=== PATIENT | male | born 1940 | race Asian ===

== ENCOUNTER 2016-04-01 17:30 | Inpatient (IN) | payer MEDICARE ==
[~2016-04-01] VITALS: Ht 170.2 cm; Wt 80.9 kg
[2016-04-01 17:35] VITALS: BP 188/83; PULSE 69; RESP 50; O2SAT 86
--- NOTE | 2016-04-01 17:56 | ED.REPORT ---
HPI-Dyspnea / Wheezing Date of Service Apr 01, 2016 ED Provider: Ethan Eastman MD Pt is a 75 year old male with a hx of CHF, HTN, CVA, and DM presenting to the ED complaining of dyspnea onset yesterday. He denies fever, diaphoresis, nausea , vomiting. He reports dyspnea on exertion, reporting that it took him more than half an hour to recover from going up the stairs. The pt was unable to sleep well last night. The pt's son in law reports that today, the pt seemed fine at 1300, then at 1700 the pt was wheezing heavily. Recent hospitalization in [place], [facility] in [place] [facility]. The family denies previous similar symptoms. The pt is visiting from [place]. Nursing Notes Stated Complaint: SHORTNESS OF BREATH Chief Complaint: Respiratory Distress Nursing Notes Reviewed: Yes (Nubli not reconciled) Allergies: Coded Allergies: No Known Allergies (Unverified , 04/01/16) Scheduled Allopurinol (Allopurinol) 100 Mg Tablet 100 MG PO DAILY Atorvastatin (Lipitor) 80 Mg Tablet 80 MG PO DAILY Dabigatran Etexilate Mesylate (Pradaxa) 75 Mg Capsule 75 MG PO BID Furosemide (Furosemide) 20 Mg Tab 10 MG PO DAILY Insulin Aspart (NovoLOG 70/30 U100 Insulin Vial) 100 Unit/Ml Vial 16 UNIT SUBQ BID Losartan Potassium (Cozaar) 100 Mg Tablet 50 MG PO DAILY Metoprolol Succinate ER (Metoprolol Succinate ER) 100 Mg Tab.er.24h 100 MG PO BID Potassium Chloride (Potassium Chloride) 10 Meq Capsule.er 5 MEQ PO DAILY TAKE WITH FOOD General Time Seen by MD: 17:50 Chief Complaint Shortness of breath Hx Obtained From: Patient, Son, Daughter Arrived By: Walk-in Sudden in Onset?: No Onset Occurred: Yesterday Symptom Duration: Since onset Severity: Current: No pain currently Severity: Maximum: No pain Recent Healthcare: No recent doctor visit, Recent hospitalization Similar Sx Previous: No Risk Factors CAD Risk Stratification Diabetes mellitus Risk factors reviewed Past Medical History Past Medical History Notes: Admitted March 13-2016 for congestive heart failure and possible pneumonia 8uj at [facility] in the [place], [place] Echo at outside hospital 02/08/2016 showed moderately decreased LV function with EF 40-45% Admitted February 11 through 02/15/2016 in [place] for a stroke Past Medical History History of combined systolic and diastolic congestive heart failure Paroxysmal atrial fibrillation and flutter, on per ANITA Type II diabetes Chronic renal insufficiency Hypertension History of CVA, history of dysphagia History of tachybradycardia syndrome Gout Coronary artery disease Past Surgical History RCA percutaneous intervention for coronary disease Reports: CABG Smoking History Unknown if Ever Smoker Social History Lives in [place] Ambulatory Status Independent Review of Systems Constitutional: Denies: Fever Respiratory: Reports: Dyspnea on exertion, Shortness of breath, Wheezing Skin: Denies Diaphoresis Complete sys rev & neg: except as marked. GI: Denies: Nausea, Vomiting Physical Exam Initial Vital Signs Vital Signs (First) Date Time Temp Pulse Resp B/P Pulse Ox O2 Delivery O2 Flow Rate FiO2 04/01/16 17:35 37.0 69 50 188/83 86 Room Air 04/01/16 18:47 2.5 Initial VS: Reviewed, Vital signs abnormal (hypoxic) Head / Eyes: Atraumatic, Normocephalic, PERRL ENT: Mucous membranes moist, Conjunctiva normal, No scleral icterus Abdomen / GI: Soft, Non-tender, No guarding, No rebound Skin: Warm, Dry, No cyanosis Neurologic: Alert, Oriented, Nonfocal Psychiatric: Mood/affect normal, Behavior normal, Normal thought content General/Constitutional: Awake, Alert Very hard of hearing. Respiratory / Chest: No chest tenderness Wheezing / Retractions: Positive: Wheeze insp/exp diffuse Rales / Rhonchi: Positive: Rales diffuse Visibly tachypnic and mildly dyspnic. Diminished lung sounds. Cardiovascular: No murmurs Lower Extremity / Pelvis / MS: No deformity, Neurologic intact, Vascular intact Trace edema symmetrically, no signs of DVT Interpretation & Diagnostics Lab Results Interpretation Result Diagram: 04/01/16 1752 04/01/16 1752 Test 04/01/16 17:52 White Blood Count 17.1th/mm3 (3.8-10.1) Red Blood Count 4.98mil/mm3 (4.40-5.80) Hemoglobin 14.7g/dL (13.8-17.2) Hematocrit 44.2% (41.0-50.0) Mean Corpuscular Volume 88.8fL (81-100) Mean Corpuscular Hemoglobin 29.5pg (27.0-35.0) Mean Corpuscular Hemoglobin Concent 33.3% (32.0-37.0) Red Cell Distribution Width 16.6% (12.3-15.4) Platelet Count 242bil/L (150-400) Neutrophils (%) (Auto) 77.1% (40-74) Lymphocytes (%) (Auto) 11.4% (14-46) Monocytes (%) (Auto) 9.1% (4-12) Eosinophils (%) (Auto) 1.4% (0-5) Basophils (%) (Auto) 0.2% (0-3) Prothrombin Time 11.4sec (8.1-12.5) Prothromb Time International Ratio 1.06ratio Activated Partial Thromboplast Time 36.9sec (22.8-33.0) D-Dimer < 0.5mg/L (<0.50) Sodium Level 142mEq/L (134-144) Potassium Level 4.9mEq/L (3.5-5.2) Chloride Level 104mEq/L (97-108) Carbon Dioxide Level 21mmol/L (18-29) Blood Urea Nitrogen 26mg/dL (8-27) Creatinine 1.55mg/dL (0.76-1.27) Estimat Glomerular Filtration Rate 47mL/min (>59) Glucose Level 200mg/dL (60-99) Lactic Acid Level 2.4mmol/L (0.4-2.0) Calcium Level 8.5mg/dL (8.5-10.1) Magnesium Level 1.8mg/dL (1.6-2.6) Total Bilirubin 0.7mg/dL (0.0-1.2) Aspartate Amino Transf (AST/SGOT) 20U/L (0-50) Alanine Aminotransferase (ALT/SGPT) 19U/L (0-44) Alkaline Phosphatase 150U/L (25-160) Troponin T < 0.010ug/L (0.0-0.011) Pro-B-Type Natriuretic Peptide 5169pg/mL (0-486) Total Protein 6.6g/dL (6.4-8.4) Albumin 3.8g/dL (3.4-5.0) Hold Bass Top Tube Received (Received) Lab Results Interpretation: CBC possible leukocytosis CMP renal insufficiency is improved from recent labs the creatinine at 2.79, mild Lactic acid marginally elevated Blood culture 2 pending Troponin negative BNP elevated ECG Interpretation ECG Interpretation: EKG demonstrates atrial flutter with a ventricular control, rate of 80, no clear acute ischemic changes. NO prior EKG available for comparison Time: 17:56 Interpreted by: ED physician X-Ray Chest Interpretation Chest Xray Interpretation: IMPRESSION: Right basilar radiopacities in pleural effusions suspicious for aspiration or infection. Short interval followup is recommended to ensure resolution of this finding and exclude underlying pulmonary pathology. Dictated by: Leslee Austin M.D. on 04/01/2016 at 19:05 View: Portable, 1 view Interpretation / Wet Read by: Interpret - Radiologist Re-Eval/Medical Decision Med Decision/Clinical Course This is a 75-year-old male who is visiting from [place] and arrived on Thursday. He developed some shortness of breath yesterday, that worsened today associated with dyspnea on exertion, and some mild increase in leg edema. He denies fevers, chills chills or cough. His history is made difficult by the fact he is extremely hard of hearing. 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 Patient denies any chest pain. He notes symptoms started yesterday, family noted that he became visibly short of breath today. Turns out the patient was recently admitted for identical presentation or shortness of breath beginning of this month in [place]-and his presentation was similar lab findings as well. He was treated empirically for possible CHF and pneumonia, was final discharge diagnosis was CHF-is still discharged on antibiotics as well. He has chronic atrial fibrillation/flutter is anticoagulated per ANITA that, with the dose recently being adjusted down for his chronic renal insufficiency certainly take 75 mg twice a day. He reports he has been compliant. He has no prior history of PE or DVT. On exam he is satting in the mid 80s, he is mildly short of breath, and he has rails, and he has bilateral lower extremity trace edema without evidence of DVT or PE. He is not febrile. However he does does have a white count, his chest x-ray is atypical and could be pneumonia versus CHF. Additionally his lactic acid is marginally elevated, but so is his proBNP. He is not rate controlled atrial flutter without acute ischemic changes. Reviewing his recent hospitalization after taking records from my indicates he presented here identically-at that time he had a white count of 23,000, describing was even worse at 2.7. I am very suspicious that his symptoms are more CHF-the presentation for pneumonia is highly atypical. However due to the white count, recent concern for infection, blood cultures were drawn the patient is being empirically covered. He initially was ordered get ceftriaxone and Zithromax until it came out that he was admitted in past weeks, which point the differential includes healthcare associated pneumonia and the coverage has been adjusted to reflect that. My suspicion for pneumonia is lower than it is for CHF given his clinical presentation, history and findings. Sensation is hypoxic, because he does have findings of volume overload, because he does CHF, and his lactic acid is in the nonspecific but marginally elevated level-I do not think that IV fluid administration to be beneficial, as I remains skeptical regarding the pneumonia diagnosis. I agree the pneumonia is in the differential, but I think in this setting aggressive IV fluids A be harmful and the patient clinically seems to be somewhat volume overloaded, has a history of CHF, thinks that CHF, lacks fever, cough or other typical symptoms of pneumonia. For this reason, because I still remain suspicious that CHF is the leading cause here, so nitroglycerin was given and the patient was also given a dose of Lasix IV. Patient is being admitted for continued management. Source of Hx: Old records Re-Evaluation/Progress : Time of Eval: 19:46 Patient Status: Condition improved Re-Evaluation/Progress Note: Discussed plan for admission. Pt understands and agrees. Consultation : Referral / Consult Name: Juanpablo Sanabria MD Consulted With: Hospitalist Call Returned at: 19:39 Irrigation Worker: Will see patient, Agrees with plan, Accepts admit Differential Diagnosis: Positive: Congestive heart failure, Dysrhythmia ( chronic atrial fibrillation/flutter), Pneumonia, Negative: Hypertensive emergency, Pericarditis, Pneumothorax, Pulmonary embolism, Respiratory failure Counseled Regarding: Diagnosis, Lab results, Need for follow-up, When/why to return to ED Discharge & Departure Impression: Primary Impression: Shortness of breath Additional Impressions: Congestive heart failure Congestive heart failure type: combined Congestive heart failure chronicity: acute on chronic Qualified Code: I50.43 - Acute on chronic combined systolic (congestive) and diastolic (congestive) heart failure Pneumonia Pneumonia type: due to unspecified organism Laterality: right Lung location : lower lobe of lung Qualified Code: J18.9 - Pneumonia, unspecified organism Anticoagulated by anticoagulation treatment Renal insufficiency Elevated lactic acid level Elevated brain natriuretic peptide (BNP) level Hypoxia Chronic atrial flutter Disposition: ADMITTED TO HOSPITAL Discharge Condition All VS Reviewed: Yes Condition: Improved Scribe Attestation Portions of this note were transcribed by Batsheva De León. I, Dr. Eastman personally performed the history, physical exam and medical decision-making; I reviewed and confirmed the accuracy of the information in the transcribed note. Signed by: Alma Beard, 04/01/2016 and 1939. Ethan Eastman MD Apr 01, 2016 17:56 BATSHEVA DE LEÓN Apr 01, 2016 18:13
[2016-04-01 18:14] LABS: BASOPHILS % (AUTO) 0.2 % (0-3); EOSINOPHILS % (AUTO) 1.4 % (0-5); MONOCYTES % (AUTO) 9.1 % (4-12); Mean Corpuscular Hemoglobin 29.5 pg (27.0-35.0); Mean Corpuscular Volume 88.8 fL (81-100); NEUTROPHILS % (AUTO) 77.1 % (40-74); Platelet Count 242 bil/L (150-400)
[2016-04-01 18:18] LABS: INR 1.06 ratio
[2016-04-01 18:29] LABS: TROPONIN T < 0.010 ug/L (0.0-0.011)
[2016-04-01 18:35] LABS: Magnesium 1.8 mg/dL (1.6-2.6)
[2016-04-01 18:47] VITALS: BP 119/72; PULSE 92; RESP 38; O2SAT 97
--- NOTE | 2016-04-01 19:07 | DRSVH ---
PROCEDURE: X-RAY CHEST ONE VIEW, PORTABLE ([id number]) INDICATIONS: shortness of breath TECHNIQUE: One view of the chest was acquired. COMPARISON: None. FINDINGS: Surgical changes and devices: Patient is status post median sternotomy. Lungs and pleura: There are small bilateral pleural effusions. Patchy opacities are present at the ri ght lung base. No pneumothorax. Mediastinum: Mediastinal contours appear normal. Heart size is normal. Bones and chest wall: No suspicious bony lesions. Overlying soft tissues appear unremarkable. IMPRESSION: Right basilar radiopacities in pleural effusions suspicious for aspiration or infection. Short interval followup is recommended to ensure resolution of this finding and exclude underlying pu lmonary pathology. Dictated by: Leslee Austin M.D. on 04/01/2016 at 19:05 Approved by: Leslee Austin M.D. on 04/01/2016 at 19:05
[2016-04-01] MEDS ORDERED: cefTRIAXone Inj 2 GM in IV Premix 1 EACH IV ONE (19:15)
[2016-04-01] MEDS ORDERED: Azithromycin Inj 500 MG in Dextrose 5% w/Vial Mate 250 ML IV ONE (19:15)
[2016-04-01] MEDS ORDERED: Piperacillin-Tazo 3.375 Gm Inj 3.375 GM in Dextrose 5% Minibag Plus 50 ML IV ONE (19:45)
[2016-04-01] MEDS ORDERED: levoFLOXacin Inj 750 MG in IV Premix 1 EACH IV ONE (19:45)
[2016-04-01] MEDS ORDERED: Vancomycin Dose per Pharmacist XX ONE (19:45)
[2016-04-01] MEDS ORDERED: ZYL100 PO (19:46)
[2016-04-01] MEDS ORDERED: ATOR80TA PO (19:46)
[2016-04-01] MEDS ORDERED: FUR20 PO (19:46)
[2016-04-01] MEDS ORDERED: NOVO7030I SUBQ (19:46)
[2016-04-01] MEDS ORDERED: LOSA100T3 PO (19:46)
[2016-04-01] MEDS ORDERED: DABI75CA3 PO (19:46)
[2016-04-01] MEDS ORDERED: METO-274 PO (19:46)
[2016-04-01] MEDS ORDERED: POTA10CA42 PO (19:46)
[2016-04-01] MEDS ORDERED: Furosemide 10 mg/mL 4 mL Inj IVPUSH ONE (19:50)
[2016-04-01] MEDS ORDERED: Vancomycin Inj 1,000 MG in IV Premix 1 EACH IV ONE (20:20)
[2016-04-01] MEDS ORDERED: Albuterol 2.5 mg/3 mL Inhalation Solution NEB PRN (20:25)
[2016-04-01] MEDS ORDERED: Alum-Mag Hydrox-Simeth 30 mL Suspension PO PRN (20:25)
[2016-04-01] MEDS ORDERED: Ondansetron 2 mg/mL 2 mL Inj IVPUSH ONE (20:25)
[2016-04-01] MEDS ORDERED: Polyethylene Glycol (PEG) 17 Gm Powder PO PRN (20:25)
[2016-04-01] MEDS: MeTOProlol XL 50 mg ER24 Tablet PO SCH (21:30)
[2016-04-01] MEDS ORDERED: Glucose 40% Oral Gel 15 Gm Tube PO PRN (21:40)
--- NOTE | 2016-04-01 22:11 | PCM.HPMED ---
Subjective Date of Service Apr 01, 2016 Primary Provider: Admitting Physician: Primary Care Physician: Vitor,Ed MD Attending Physician: Chief Complaint: Worsening shortness of breath History of Present Illness: Patient is a 75 year old hard of hearing male with a history of CHF, CAD s/p CABG, CKD stage 3, HTN, DM2 on insulin and atrial fibrillation with chronic anticoagulation. He presented to [facility] on 04/01/16 with worsening shortness of breath. Patient is a poor historian, in part due to his hearing deficit. Was able to determine that the patient continues to feel short of breath and is nauseated from not having dinner. He denied cough and fever, but was feeling cold. He reports that his shortness of breath had been getting worse and he could not tolerate activity today. He would have to rest for at least 30 minutes before he could move again. Per the ED report the patient is visiting family from [place]. He arrived Thursday and appeared to be in his usual state of health. A son in law stated that the patient began wheezing around 1700. Dyspnea on exertion was witnessed and he required more than 30 minutes to recover. Patient recently admitted at [facility] in [place] from 03/13/16 to . He had worsening shortness of breath at that time as well. Concern for CHF exacerbation vs. pneumonia. Received antibiotics in ED, not continued on the floor, but discharged with 10 days treatment of Levofloxacin. Treated with IV Lasix, fluid restriction. Appeared euvolemic at time of discharge. In the ED on 04/01/16 patient afebrile with a heart rate of 69, respiratory rate of 50, blood pressure 188/83, and O2 saturation of 86% on room air. Labs remarkable for WBC 17.1, creatinine 1.55, blood glucose 200, lactic acid 2.4, BNP 5169. Due to recent hospital admission there is concern for HCAP and broad spectrum antibiotics initiated in the ED. Also given 40 mg IV Lasix for diuresis. Discussed with Dr. Eastman. Will admit for continued evaluation and management of the patient's dyspnea. Review of Systems: A comprehensive review of systems was attempted with the patient and found to be negative except as above in the history of present illness. Allergies Coded Allergies: No Known Allergies (Unverified , 04/01/16) Home Medications From discharge summary dated 03/16/16: Losartan 50 mg daily Pradaxa 75 mg BID Potassium chloride 5 mEq daily Metoprolol succinate 100 mg BID Lasix 10 mg daily Novolog 70/30 - 16 units before breakfast, dinner; do not give if blood glucose less than 120 Atorvastatin 80 mg daily Allopurinol 100 mg daily PMH Systolic congestive heart failure CAD s/p CABG Paroxysmal atrial fibrillation Type 2 Diabetes mellitus Hyperlipidemia Gout History of CVA CKD stage 3 HARD OF HEARING Surgical History CABG Family History No known family history of heart disease Social History Hx Alcohol Use: No Hx Substance Use: No Hx Tobacco Use: Yes Smoking Status: Former Smoker (Quit more than 40 years ago) Exam Vital Signs Vital Sign - Last Date Time Temp Pulse Resp B/P Pulse Ox O2 Delivery O2 Flow Rate FiO2 04/01/16 18:47 92 38 119/72 97 Nasal Cannula 2.5 04/01/16 17:35 37.0 Exam Alert and oriented x3, no acute distress; hard of hearing with hearing aid in left ear Head atraumatic, normocephalic PERRLA, EOMI, sclera anicteric Mucus membranes moist, no oral thrush observed No cervical lymphadenopathy, neck supple, nontender No JVD noted Cardiac tones irregular rate and rhythm with no murmur appreciated Lungs with bibasilar crackles (R>L); using accessory muscles to breathe; difficulty speaking in full sentences No abdominal tenderness, mildly distended, normoactive bowel tones, soft Nugent absent Radial pulses normal and equivalent bilaterally, dorsalis pedis pulses difficult to appreciate bilaterally No cyanosis, clubbing; moderate pitting edema present in both lower extremities No ulcerations/open wounds Cranial nerves appear to be fully intact, normal speech, patient can move upper and lower limbs grossly Lab and Diagnostics Result Diagram: 04/01/16175104/01/161751 X-Rays, CTs and MRIs Chest x-ray: IMPRESSION: Right basilar radiopacities in pleural effusions suspicious for aspiration or infection. Short interval followup is recommended to ensure resolution of this finding and exclude underlying pulmonary pathology. Dictated by: Leslee Austin M.D. on 04/01/2016 at 19:05 12-lead ECG Rate 80 QTc 435 atrial fibrillation Cardiac Echo Impressions From outside records dated 02/08/16: The left ventricular systolic function is mild to moderately decreased. The visually estimated ejection fraction is between 40-45%. There is evidence of regional wall motion abnormalities. Llama Farmer interpretation Assessment & Plan Patient is a 75 year old hard of hearing male with a history of CHF, CAD s/p CABG, CKD stage 3, HTN, DM2 on insulin and atrial fibrillation with chronic anticoagulation. He presented to [facility] on 04/01/16 with worsening shortness of breath. Recent hospitalization in [place] with similar presentation. Concern for HCAP as well as CHF exacerbation. Patient admitted for management and further evaluation to determine more precise etiology of his symptoms. 1. Acute on chronic systolic and diastolic congestive heart failure, decompensated, present on admission. - Last echo 02/08/16 showed EF 40-45%. - Lasix 40 mg IV given once in ED. Will evaluate output and plan to order additional dosing accordingly. Home dose of Lasix is 10 mg daily. - Strict I&O's. - Daily standing weights. - CHF education ordered. - Fluid restriction of 2L at this time. 2. Possible Healthcare Associated Pneumonia, acute, present on admission. - Although patient does not report symptoms, but does have leukocytosis, elevated lactate, and possible pneumonia on chest x-ray. Because of hospitalization 03/13/16 - 03/16/16 he is at risk of HCAP. He did receive 24 hours of antibiotics during that admission. - Strep pneumoniae and Legionella urine Ag ordered and pending. - MRSA screening ordered and pending. No known history of MRSA. Will defer continued use of Vanc at this time in setting of CKD. - Rapid flu screen ordered and pending. Respiratory viral panel also ordered. - Procalcitonin ordered and pending. - Sputum and blood cultures ordered and pending. - Vancomycin, Zosyn, and Levofloxacin started in ED. Will plan to continue Zosyn and Levofloxacin - both renally adjusted. Plan to refine that as more laboratory data returns. 3. Acute hypoxic respiratory failure, present on admission. - Likely secondary to CHF exacerbation and possible pneumonia (#1, #2). - Diuresis as above in #1. - Antibiotics as above in #2. - Albuterol nebs available Q2 PRN. - Supplemental O2 as needed to maintain O2 saturation 92-96%. 4. CKD stage 3, currently appears stable. - Baseline creatinine reported to be about 1.4-1.5. Patient currently with creatinine 1.55. - Will continue to monitor BMP. - Will defer use of nephrotoxic medications as possible. 5. Type 2 DM, chronic, poorly controlled. - Last known A1c 9.3 in May 2015. - A1c ordered and pending. - Continue Novolog 70/30 16 units before breakfast and dinner. - Low-dose correction scale available as needed. 6. Paroxysmal atrial fibrillation, chronic, presume stable. - Continue Pradaxa 75 mg BID (renally adjusted dose). - Patient rate-controlled with metoprolol succinate 100 mg BID. Will order 50 mg BID at this time for rate control with lower risk of decreasing blood pressure as patient will be diuresed more aggressively. 7. Hypertension, chronic, presume stable. - Will hold home losartan (50 mg daily) at this time as patient will be diuresing more aggressively. 8. CAD s/p CABG. - Continue atorvastatin 80 mg HS. 9. Gout, chronic, presume stable. - Continue allopurinol 100 mg daily. 10. Hearing impaired. - Patient has significant difficulty hearing even with hearing aid present. - Highly recommend outpatient follow up for hearing evaluation and adjustment of hearing aid. - Antiemetic available PRN. - Bowel regimen available PRN. - Antacid available PRN. - Tylenol available PRN mild pain, fever. Patient admitted under inpatient status with expected length of stay greater than 2 midnights for severity of present symptoms, complexities of treatment plan and risk for adverse events. VTE Prophylaxis: Other (Pradaxa 75 mg BID) Resuscitation Status: CPR: Attempt Resuscitation Attending Statement The patient was seen and examined together with Dr. Gerard on 04/01 and I agree with the history, exam and plan as outlined in the note above. Lynn Gerard DO Apr 01, 2016 20:44 Juanpablo Sanabria MD Apr 01, 2016 22:59
[2016-04-01] MEDS: Insulin LISPRO 300 Unit/3 mL Inj SUBQ SCH (22:44)
--- NOTE | 2016-04-01 23:10 | NUR ---
Flu swab sent.
[2016-04-01 23:11] VITALS: BP 121/81; PULSE 90; RESP 28; O2SAT 100
[2016-04-02 03:30] VITALS: BP 126/82; PULSE 100; RESP 26; O2SAT 100
[2016-04-02 05:07] LABS: BASOPHILS % (AUTO) 0.3 % (0-3); EOSINOPHILS % (AUTO) 1.4 % (0-5); MONOCYTES % (AUTO) 13.1 % (4-12); Mean Corpuscular Hemoglobin 29.3 pg (27.0-35.0); Mean Corpuscular Volume 87.8 fL (81-100); NEUTROPHILS % (AUTO) 74.3 % (40-74); Platelet Count 210 bil/L (150-400)
[2016-04-02 05:31] LABS: Magnesium 1.7 mg/dL (1.6-2.6); Phosphorus 3.2 mg/dL (2.5-4.9)
[2016-04-02 07:41] VITALS: BP 137/79; PULSE 89; RESP 22; O2SAT 100
[2016-04-02] MEDS ORDERED: Vancomycin Dose per Pharmacist XX SCH (08:30)
[2016-04-02] MEDS ORDERED: Piperacillin-Tazo 3.375 Gm Inj 3.375 GM in Dextrose 5% Minibag Plus 50 ML IV SCH (08:30)
[2016-04-02] MEDS: MeTOProlol XL 50 mg ER24 Tablet PO SCH (08:30)
--- NOTE | 2016-04-02 09:36 | NUR ---
Social work note - Initial assessment David Pritchett is a 75 yr old - lives in [place] who is in [place] visiting his daughter and son. EMR reviewed: Pt has [facility] [employer] insurance, His PCP in [place] is Barak Pinzon. Readmit score not available. See attached CM initial assessment. BUILDING ARCHITECTURAL DESIGNER attempted to meet with pt - pt Hard of hearing, confused - RN asked BUILDING ARCHITECTURAL DESIGNER to call his daughter Lynn. BUILDING ARCHITECTURAL DESIGNER spoke with Lynn Tavarez . Lynn states that pt has been in declining health over the past few months. He lives alone in an apartment in [place], Independent of ADL's, uses a cane and walker at baseline. Pt has no DPOA - BUILDING ARCHITECTURAL DESIGNER provided paperwork for pt and family to review - Daughter will explore if [place] standards are different. Lynn asked for PT evaluation - she worries that he will not be able to manage the flight of stairs into her house and wonders if he would not benefit from SNF rehab prior to d/c home. Pt has an open ended ticket to fly home and daughter wants to make sure he is safe enough to handle travel. BUILDING ARCHITECTURAL DESIGNER provided SNF list and HH agency list in Pt's room for daughter to explore. SNF Paperwork and PASRR also on paper chart. Plan: Likely home with daughter in POV - pending PT evaluation for rehab vs Home Health. LETTY Lindsay Addendum: 04/02/16 at 0959 by LEELEE MEJIA Amended: Links added.
[2016-04-02] MEDS: Insulin LISPRO 300 Unit/3 mL Inj SUBQ SCH ×3 (09:37→17:46)
[2016-04-02] MEDS: Insulin ASPART 70/30 FlexPen 300 Unit/3 mL Inj SUBQ SCH ×2 (09:37→17:45)
[2016-04-02] MEDS ORDERED: APIX5TAB PO (10:54)
[2016-04-02] MEDS ORDERED: DILT240C89 PO (10:54)
[2016-04-02] MEDS ORDERED: PANT40SU PO (10:54)
--- NOTE | 2016-04-02 10:58 | NUR ---
Report given to [facility] Nurse
[2016-04-02 12:56] VITALS: BP 157/89; PULSE 94; RESP 20; O2SAT 96
[2016-04-02 13:20] VITALS: PULSE 95
--- NOTE | 2016-04-02 15:30 | NUR ---
Evaluation completed. Please go to "Notes" then click on "Assessments and Notes" (bottom left corner of screen). Then select appropriate discipline tab on top of screen.
[2016-04-02 15:49] LABS: APPEARANCE,URINE CLEAR (CLEAR,HAZY); COLOR,URINE YELLOW (YELLOW); OCCULT BLOOD,URINE TRACE (NEGATIVE); PH,URINE 7.5 (5.0-8.0); UROBILINOGEN,URINE NORMAL (NORMAL)
--- NOTE | 2016-04-02 17:50 | PCM.DIMED ---
JAYY REILLY DO 04/02/16 1750: Discharge Instructions Date of Service Apr 02, 2016 Dates of Hospitalization Apr 01, 2016 at 20:34 Discharge Diagnosis Discharge Diagnosis 1. Acute on chronic systolic and diastolic congestive heart failure, decompensated, present on admission. 2. Possible Healthcare Associated Pneumonia, acute, present on admission. 3. Acute hypoxic respiratory failure, present on admission, Resolved 4. CKD stage 3, currently appears stable. 5. Type 2 DM, chronic, poorly controlled. 6. Paroxysmal atrial fibrillation, chronic, presume stable. 7. Hypertension, chronic, presume stable. 8. CAD s/p CABG. stable 9. Gout, chronic, presume stable. 10. Hearing impaired.stable Diet Heart Healthy, Diabetic (limit carb intake to less than 45 grams) Activity Limited until seen by PCP Call your provider Fever or Chills, Shortness of breath, Bleeding, Chest pain, Vomitting, Excessive diarrhea, Weakness (unilateral) Patient Instructions 1. Acute on chronic systolic and diastolic congestive heart failure, decompensated, present on admission. - Last echo 02/08/16 showed EF 40-45%. - Continue home dose of Lasix is 10 mg daily. -Monitor leg swelling -Follow up with PCP 2. Possible Healthcare Associated Pneumonia, acute, present on admission. Ruled out - leukocytosis, elevated lactate on admission. Possible pneumonia on chest x- ray suspicious for patchy infiltrate. Because of hospitalization 03/13/16 - he is at risk of HCAP. Once dose of Vancomycin, Zosyn, and Levofloxacin given. - Strep pneumoniae and Legionella urine Ag ordered and pending, negative - MRSA screening ordered, negative. No known history of MRSA. - Rapid flu screen ordered and pending. Respiratory viral panel also ordered. Negative. - Procalcitonin ordered and pending. negative at time of discahrge - Sputum and blood cultures ordered and pending. negative, at time of discharge 3. Acute hypoxic respiratory failure, present on admission. - Likely secondary to CHF exacerbation - Diuresis as above in #1. - Albuterol nebs available Q2 PRN. - Supplemental O2 as needed to maintain O2 saturation 92-96%. On room air at time of discharge 4. CKD stage 3, currently appears stable. - Baseline creatinine reported to be about 1.4-1.5. Patient currently with creatinine 1.55. 5. Type 2 DM, chronic, poorly controlled. - Last known A1c 9.3 in May 2015. - A1c ordered and pending at time of discharge -Continue home medications at discharge 6. Paroxysmal atrial fibrillation, chronic, presume stable. - Continue Pradaxa 75 mg BID (renally adjusted dose). Continue as outpatient - Conflicting medical records also show Eliquis. Hold Eliquis 5 mg until you see your PCP. - Continue home metoprolol dose 7. Hypertension, chronic, presume stable. - Continue home losartan (50 mg daily) 8. CAD s/p CABG. - Continue atorvastatin 80 mg HS. 9. Gout, chronic, presume stable. - Continue allopurinol 100 mg daily. 10. Hearing impaired. - Highly recommend outpatient follow up for hearing evaluation and adjustment of hearing aid. Follow-up plan Follow up with your Primary Doctor in one week Based on the X-Ray of your chest we noticed finding that suggest chronic lung changes that need to be further evaluated by a chest CT. Please see you primary doctor at your next follow up and discuss getting a chest CT Follow-up with PCP in: 1 week Tyson Davis MD 04/05/16 1431: Discharge Instructions Attending's Statement The patient was seen and examined together with Dr. Reilly on 04/02/2016 and I agree with the history, exam and plan as outlined in the note above. . JAYY REILLY DO Apr 02, 2016 17:50 Tyson Davis MD Apr 05, 2016 14:31
[2016-04-02] MEDS ORDERED: FUR20 PO (17:52)
--- NOTE | 2016-04-02 18:03 | NUR ---
Arrived to unit Pt arrived to [facility] room 2000 at ~1250, report received from Lucas Quinterso RN. Pt trialed on RA and 96% on RA. Pt's BP slightly elevated at 157/89, but VS otherwise stable on RA. sound engineering technician reports that Pt is in a fib, notified. UA ordered which was drawn from Pt's condom catheter with some suspicion of contamination while acquiring sample, made aware.
--- NOTE | 2016-04-02 18:17 | NUR ---
Social Work Note: Discharge Data& Assessment: Per pt is medically ready to discharge home via POV with daughter. David Pritchett is a 75 year old male admitted on 04/01/2016 for SOB and hypoxia. Per pt is medically improved and ready to discharge. PT is recommending home with HH. SW confirmed with pt and pt daughter at bedside that pt is returning home to [place] this Thursday and he would prefer to follow up with his PCP and follow any recommendations for PT in [place]. Pt and pt daughter officially declined HH PT at this time and will be discharging home tonight. Pt and pt daughter deny any other needs. No other discharge needs identified. updated and agreeable to plan. Plan: Per pt is medically ready to discharge to [facility] home via POV and follow up with his PCP and participate in PT once he returns home to [place] this Thursday04/05/2016. Pt and pt daughter deny any other needs. No other discharge needs identified. ATA Lockhart
--- NOTE | 2016-04-02 18:52 | PCM.DC.MED ---
Discharge Summary Date of Service Apr 02, 2016 Dates of Hospitalization Date of Hospital Admission Apr 01, 2016 at 20:34 Date of Discharge: Apr 02, 2016 Providers: Admitting Physician: Juanpablo Sanabria MD Primary Care Physician: Nopcp Attending Physician: Juanpablo Sanabria MD Diagnosis at Time of Discharge Diagnosis at Time of Discharge 1. Acute on chronic systolic and diastolic congestive heart failure, decompensated, present on admission. 2. Possible Healthcare Associated Pneumonia, acute, present on admission. 3. Acute hypoxic respiratory failure, present on admission, Resolved 4. CKD stage 3, currently appears stable. 5. Type 2 DM, chronic, poorly controlled. 6. Paroxysmal atrial fibrillation, chronic, presume stable. 7. Hypertension, chronic, presume stable. 8. CAD s/p CABG. stable 9. Gout, chronic, presume stable. 10. Hearing impaired.stable Procedures XRay, CTs & MRIs Chest x-ray: IMPRESSION: Right basilar radiopacities in pleural effusions suspicious for aspiration or infection. Short interval followup is recommended to ensure resolution of this finding and exclude underlying pulmonary pathology. Dictated by: Leslee Austin M.D. on 04/01/2016 at 19:05 ECG 12 Lead Rate 80 QTc 435 atrial fibrillation Cardiac Echo Impression From outside records dated 02/08/16: The left ventricular systolic function is mild to moderately decreased. The visually estimated ejection fraction is between 40-45%. There is evidence of regional wall motion abnormalities. [employer] interpretation Brief History Copied from Dr. Gerard H&P 04/01/16 "Patient is a 75 year old hard of hearing male with a history of CHF, CAD s/p CABG, CKD stage 3, HTN, DM2 on insulin and atrial fibrillation with chronic anticoagulation. He presented to [facility] on 04/01/16 with worsening shortness of breath. Patient is a poor historian, in part due to his hearing deficit. Was able to determine that the patient continues to feel short of breath and is nauseated from not having dinner. He denied cough and fever, but was feeling cold. He reports that his shortness of breath had been getting worse and he could not tolerate activity today. He would have to rest for at least 30 minutes before he could move again. Per the ED report the patient is visiting family from [place]. He arrived Thursday and appeared to be in his usual state of health. A son in law stated that the patient began wheezing around 1700. Dyspnea on exertion was witnessed and he required more than 30 minutes to recover. Patient recently admitted at [facility] in [place] from 03/13/16 to . He had worsening shortness of breath at that time as well. Concern for CHF exacerbation vs. pneumonia. Received antibiotics in ED, not continued on the floor, but discharged with 10 days treatment of Levofloxacin. Treated with IV Lasix, fluid restriction. Appeared euvolemic at time of discharge. In the ED on 04/01/16 patient afebrile with a heart rate of 69, respiratory rate of 50, blood pressure 188/83, and O2 saturation of 86% on room air. Labs remarkable for WBC 17.1, creatinine 1.55, blood glucose 200, lactic acid 2.4, BNP 5169. Due to recent hospital admission there is concern for HCAP and broad spectrum antibiotics initiated in the ED. Also given 40 mg IV Lasix for diuresis. Discussed with Dr. Eastman. Will admit for continued evaluation and management of the patient's dyspnea." Hospital Course Patient is a 75 year old hard of hearing male with a history of CHF, CAD s/p CABG, CKD stage 3, HTN, DM2 on insulin and atrial fibrillation with chronic anticoagulation. He presented to [facility] on 04/01/16 with worsening shortness of breath. Recent hospitalization in [place] with similar presentation. Concern for HCAP as well as CHF exacerbation. Patient admitted for management and further evaluation to determine more precise etiology of his symptoms. 1. Acute on chronic systolic and diastolic congestive heart failure, decompensated, present on admission. - Last echo 02/08/16 showed EF 40-45%. - Lasix 40 mg IV given once in ED. fluid status and SOB improved - Continue home dose of Lasix is 10 mg daily. - Strict I&O's. - Fluid restriction of 2L at this time, completed, recommend monitor fluid status at home 2. Possible Healthcare Associated Pneumonia, acute, present on admission. Ruled out - Although patient does not report symptoms, but does have leukocytosis, elevated lactate, and possible pneumonia on chest x-ray. Because of hospitalization 03/13/16 - 03/16/16 he is at risk of HCAP. He did receive 24 hours of antibiotics during that admission. Patient's acute change in respiratory status and effusions noted on CXR likely due to acute excerebration of CHF. - Strep pneumoniae and Legionella urine Ag ordered and pending. Negative - MRSA screening ordered and pending. Negative. No known history of MRSA. - Rapid flu screen ordered and pending. Respiratory viral panel also ordered. - Procalcitonin ordered and pending. Trended down, negative at time of discharge - Sputum and blood cultures ordered and pending. Negative for growth at time of discharge - Vancomycin, Zosyn, and Levofloxacin started in ED. Stopped vancomycin day one. Continued Zosyn and Levofloxacin overnight and morning of discharge. Labs negative for signs of ongoing infection, antibiotics discontinued at time of discharge 3. Acute hypoxic respiratory failure, present on admission. - Likely secondary to CHF exacerbation, Patient and his daughter noted that patient has not been taking his diuretics because he forgot to bring them with him during his vacation - Diuresed as above in #1. -Continue home lasix, prescription given. - Albuterol nebs available Q2 PRN. discontinued at time of discharge - Supplemental O2 as needed to maintain O2 saturation 92-96%.discontinued at time of discharge 4. CKD stage 3, currently appears stable. - Baseline creatinine reported to be about 1.4-1.5. Patient discharged with creatinine 1.4. - Held use of nephrotoxic medications as possible. -Follow up with PCP in one week 5. Type 2 DM, chronic, poorly controlled. - Last known A1c 9.3 in May 2015. - A1c ordered and pending at time of discharge - Continue Novolog 70/30 16 units before breakfast and dinner. discontinued at time of discharge - Low-dose correction scale available as needed. discontinued at time of discharge 6. Paroxysmal atrial fibrillation, chronic, presume stable. - Continue Pradaxa 75 mg BID (renally adjusted dose). - Patient rate-controlled with metoprolol succinate 100 mg BID. Will order 50 mg BID at this time for rate control with lower risk of decreasing blood pressure as patient will be diuresed more aggressively.discontinued at time of discharge -Continue home dose of metoprolol 7. Hypertension, chronic, presume stable. - Held home losartan (50 mg daily) due to diuresis. -Continue home losartan at discharge 8. CAD s/p CABG. - Continue atorvastatin 80 mg HS. 9. Gout, chronic, presume stable. - Continue allopurinol 100 mg daily. 10. Hearing impaired. - Patient has significant difficulty hearing even with hearing aid present. - Highly recommend outpatient follow up for hearing evaluation and adjustment of hearing aid. Exam Vital Signs (Last) Date Time Temp Pulse Resp B/P Pulse Ox O2 Delivery O2 Flow Rate FiO2 04/02/16 13:20 95 04/02/16 12:56 36.3 20 157/89 96 Room Air 04/02/16 07:41 2.00 Exam Alert and oriented x3, no acute distress; hard of hearing with hearing aid in left ear Head atraumatic, normocephalic PERRLA, EOMI, sclera anicteric Mucus membranes moist, no oral thrush observed No cervical lymphadenopathy, neck supple, nontender No JVD noted Cardiac tones irregular rate and rhythm with no murmur appreciated Lungs with clear to auscultation b/l; no dyspnea noted, no use of accessory muscles No abdominal tenderness, mildly distended, normoactive bowel tones, soft condom Nugent present Radial pulses normal and equivalent bilaterally, dorsalis pedis pulses difficult to appreciate bilaterally No cyanosis, clubbing; trace edema of lower extremities noted No ulcerations/open wounds Cranial nerves appear to be fully intact, normal speech, patient can move upper and lower limbs grossly Test 04/01/16 17:25 04/01/16 17:52 04/02/16 05:00 04/02/16 14:53 Hemoglobin A1c 8.5% (4.8-5.6) Prothrombin Time 11.4sec (8.1-12.5) Prothromb Time International Ratio 1.06ratio Activated Partial Thromboplast Time 36.9sec (22.8-33.0) D-Dimer < 0.5mg/L (<0.50) Total Bilirubin 0.7mg/dL (0.0-1.2) Aspartate Amino Transf (AST/SGOT) 20U/L (0-50) Alanine Aminotransferase (ALT/SGPT) 19U/L (0-44) Alkaline Phosphatase 150U/L (25-160) Troponin T < 0.010ug/L (0.0-0.011) Pro-B-Type Natriuretic Peptide 5169pg/mL (0-486) Total Protein 6.6g/dL (6.4-8.4) Albumin 3.8g/dL (3.4-5.0) Procalcitonin < 0.05ng/mL (See Comment) Hold Bass Top Tube Received (Received) White Blood Count 11.8th/mm3 (3.8-10.1) Red Blood Count 5.01mil/mm3 (4.40-5.80) Hemoglobin 14.7g/dL (13.8-17.2) Hematocrit 44.0% (41.0-50.0) Mean Corpuscular Volume 87.8fL (81-100) Mean Corpuscular Hemoglobin 29.3pg (27.0-35.0) Mean Corpuscular Hemoglobin Concent 33.4% (32.0-37.0) Red Cell Distribution Width 16.4% (12.3-15.4) Platelet Count 210bil/L (150-400) Neutrophils (%) (Auto) 74.3% (40-74) Lymphocytes (%) (Auto) 10.1% (14-46) Monocytes (%) (Auto) 13.1% (4-12) Eosinophils (%) (Auto) 1.4% (0-5) Basophils (%) (Auto) 0.3% (0-3) Sodium Level 141mEq/L (134-144) Potassium Level 3.9mEq/L (3.5-5.2) Chloride Level 102mEq/L (97-108) Carbon Dioxide Level 23mmol/L (18-29) Blood Urea Nitrogen 24mg/dL (8-27) Creatinine 1.41mg/dL (0.76-1.27) Estimat Glomerular Filtration Rate 52mL/min (>59) Glucose Level 194mg/dL (60-99) Lactic Acid Level 1.1mmol/L (0.4-2.0) Calcium Level 8.2mg/dL (8.5-10.1) Phosphorus Level 3.2mg/dL (2.5-4.9) Magnesium Level 1.7mg/dL (1.6-2.6) Urine Color Yellow (YELLOW) Urine Appearance Clear (CLEAR,HAZY) Urine pH 7.5 (5.0-8.0) Urine Specific [place] 1.020 (1.003-1.035) Urine Protein 100mg/dL (NEG,TRACE) Urine Glucose (UA) 100mg/dL (NEGATIVE) Urine Ketones Negativemg/dL (NEGATIVE) Urine Occult Blood Trace (NEGATIVE) Urine Nitrite Negative (NEGATIVE) Urine Bilirubin Negative (NEGATIVE) Urine Urobilinogen Normalmg/dL (NORMAL) Urine Leukocyte Esterase Negative (NEGATIVE) Urine RBC 0-2/hpf (0-2) Urine WBC 0-5/hpf (0-5) Urine Epithelial Cells Occasional/hpf (NONE-MOD) Urine Crystals None seen (NONE SEEN) Urine Bacteria None/hpf (NONE-FEW) Urine Hyaline Casts None/lpf (NONE) Urine Granular Casts None seen (NONE SEEN) Urine Waxy Casts None seen (NONE SEEN) Urine Red Blood Cell Casts None seen (NONE SEEN) Urine White Blood Cell Casts None seen (NONE SEEN) Urine Mucus None seen (None Seen) Urine Trichomonas None seen (NONE SEEN) Urine Yeast None (NONE SEEN) Urinalysis Comment None Urine Culture Reflexed Not indicated Discharge Medications Discharge Medications Allopurinol (Allopurinol) 100 Mg Tablet 100 MG PO DAILY (Reported) Atorvastatin (Lipitor) 80 Mg Tablet 80 MG PO HS (Reported) Dabigatran Etexilate Mesylate (Pradaxa) 75 Mg Capsule 75 MG PO BID (Reported) Diltiazem ER (Diltiazem ER) 240 Mg Cap.er.24h 240 MG PO BID (Reported) Furosemide (Furosemide) 20 Mg Tab 10 MG PO DAILY Prescribed by: JAYY WELLER DO Insulin Aspart (NovoLOG 70/30 U100 Insulin Vial) 100 Unit/Ml Vial 16 UNIT SUBQ BID (Reported) Losartan Potassium (Cozaar) 100 Mg Tablet 50 MG PO DAILY (Reported) Metoprolol Succinate ER (Metoprolol Succinate ER) 100 Mg Tab.er.24h 100 MG PO BID (Reported) Pantoprazole Sodium (Protonix Granules) 40 Mg Granpkt.dr 40 MG PO DAILY ( Reported) Potassium Chloride (Potassium Chloride) 10 Meq Capsule.er 50 MEQ PO DAILY ( Reported) TAKE WITH FOOD Followup Plan Follow-up plan Follow up with your Primary Doctor in one week Based on the X-Ray of your chest we noticed finding that suggest chronic lung changes that need to be further evaluated by a chest CT. Please see you primary doctor at your next follow up and discuss getting a chest CT Follow up with home health PT once you return home to [place] Discharge Diet: Heart Healthy, Diabetic (limit carb intake to less than 45 grams) Discharge Activity: Limited until seen by PCP Patient Instructions 1. Acute on chronic systolic and diastolic congestive heart failure, decompensated, present on admission. - Last echo 02/08/16 showed EF 40-45%. - Continue home dose of Lasix is 10 mg daily. -Monitor leg swelling -Follow up with PCP 2. Possible Healthcare Associated Pneumonia, acute, present on admission. Ruled out - leukocytosis, elevated lactate on admission. Possible pneumonia on chest x- ray suspicious for patchy infiltrate. Because of hospitalization 03/13/16 - he is at risk of HCAP. Once dose of Vancomycin, Zosyn, and Levofloxacin given. - Strep pneumoniae and Legionella urine Ag ordered and pending, negative - MRSA screening ordered, negative. No known history of MRSA. - Rapid flu screen ordered and pending. Respiratory viral panel also ordered. Negative. - Procalcitonin ordered and pending. negative at time of discahrge - Sputum and blood cultures ordered and pending. negative, at time of discharge 3. Acute hypoxic respiratory failure, present on admission. - Likely secondary to CHF exacerbation - Diuresis as above in #1. - Albuterol nebs available Q2 PRN. - Supplemental O2 as needed to maintain O2 saturation 92-96%. On room air at time of discharge 4. CKD stage 3, currently appears stable. - Baseline creatinine reported to be about 1.4-1.5. Patient currently with creatinine 1.55. 5. Type 2 DM, chronic, poorly controlled. - Last known A1c 9.3 in May 2015. - A1c ordered and pending at time of discharge -Continue home medications at discharge 6. Paroxysmal atrial fibrillation, chronic, presume stable. - Continue Pradaxa 75 mg BID (renally adjusted dose). Continue as outpatient - Conflicting medical records also show Eliquis. Hold Eliquis 5 mg until you see your PCP. - Continue home metoprolol dose 7. Hypertension, chronic, presume stable. - Continue home losartan (50 mg daily) 8. CAD s/p CABG. - Continue atorvastatin 80 mg HS. 9. Gout, chronic, presume stable. - Continue allopurinol 100 mg daily. 10. Hearing impaired. - Highly recommend outpatient follow up for hearing evaluation and adjustment of hearing aid. Follow-up with PCP in: 1 week Attending Statement The patient was seen and examined together with Dr. Weller on 04/02/2016 and I agree with the history, exam and plan as outlined in the note above. . JAYY WELLER DO Apr 02, 2016 18:52 Tyson Davis MD Apr 05, 2016 14:32
--- NOTE | 2016-04-03 07:12 | NUR ---
Discharge Pt discharged with family at ~1845 on 04/02/16 after MD discussed home PT options with [facility]. Pt's IV access and condom cath D/C'd. Pt given discharge educational materials on furosemide and CHF. Pt instructed to f/u with PCP in [place]. Pt and family at bedside verbalized understanding of all discharge instructions. All belongings accompanied Pt at time of discharge.
[2016-04-03] MEDS ORDERED: levoFLOXacin Inj 750 MG in IV Premix 1 EACH IV SCH (08:30)
== END 2016-04-02 18:50 | disposition home or self-care (01) | DRG 291 ==
LOC: SED 17:30 → OFED 20:34 → PCC 04-02 11:21
PROVIDERS: ADMIT Hospitalist; ATTEND Hospitalist
DX: I50.43 Acute on chronic combined systolic (congestive) and diastolic (congestive) heart failure (principal); J96.01 Acute respiratory failure with hypoxia; J18.9 Pneumonia, unspecified organism; E11.65 Type 2 diabetes mellitus with hyperglycemia; I12.9 Hypertensive chronic kidney disease with stage 1 through stage 4 chronic kidney disease, or unspecified chronic kidney disease; N18.3 Chronic kidney disease, stage 3 (moderate); Z86.73 Personal history of transient ischemic attack (TIA), and cerebral infarction without residual deficits; Z79.4 Long term (current) use of insulin; Z98.61 Coronary angioplasty status; Z95.1 Presence of aortocoronary bypass graft; I48.0 Paroxysmal atrial fibrillation; I25.10 Atherosclerotic heart disease of native coronary artery without angina pectoris; M10.9 Gout, unspecified